=== PATIENT | female | born 1955 | race Caucasian/White ===

== ENCOUNTER 2023-08-26 19:53 | Inpatient (IN) | payer MEDICARE, MEDICAID ==
[~2023-08-26] VITALS: Ht 160 cm; Wt 69.9 kg
[2023-08-26 21:31] LABS: BASOPHILS % (AUTO) 0.2 % (0.0-2.0); EOSINOPHILS % (AUTO) 1.3 % (1.0-6.0); HEMATOCRIT 40.7 % (36-46); HEMOGLOBIN 13.4 g/dL (12.0-16.0); LYMPHOCYTES # (AUTO) 2.5 K/uL (1.0-4.8); LYMPHOCYTES % (AUTO) 31.3 % (22.0-44.0); MEAN CORPUSCULAR HEMOGLOBIN 30.5 pg (26.0-34.0); MEAN CORPUSCULAR VOLUME 93 fL (80-100); MONOCYTES # (AUTO) 0.8 K/uL (0.1-1.0); MONOCYTES % (AUTO) 10.6 % (2.0-9.0); NEUTROPHILS # (AUTO) 4.5 K/uL (1.8-7.7); NEUTROPHILS % (AUTO) 56.6 % (40.0-70.0); PLATELET COUNT (AUTO) 265 K/uL (150-450)
[2023-08-26 21:39] LABS: ANION GAP 11 mmol/L (8-16); CALCIUM, TOTAL 10.3 mg/dL (8.8-10.5); CARBON DIOXIDE 31 mmol/L (22-29); CHLORIDE 102 mmol/L (98-107); CREATININE 1.12 mg/dL (0.60-1.30); GLOMERULAR FILTR. RATE CALC 48 mL/min (>60); GLUCOSE,RANDOM 112 mg/dL (70-110); POTASSIUM 4.2 mmol/L (3.5-5.1); SODIUM SERUM 144 mmol/L (136-145); UREA NITROGEN, BLOOD 25 mg/dL (7-18)
[2023-08-26 21:45] LABS: ALCOHOL, BLOOD (SERUM) < 3 mg/dL (0-10)
[2023-08-26 23:28] LABS: COVID AG,FIA SOURCE NASAL SWAB
[2023-08-26 23:46] LABS: ALCOHOL, URINE DRUG SCREEN NEGATIVE (NEGATIVE); AMPHET/METH SCREEN,URINE NEGATIVE (NEGATIVE); BARBITURATE SCREEN, URINE NEGATIVE (NEGATIVE); BENZODIAZEPINES SCREEN,URINE NEGATIVE (NEGATIVE); CANNABINOID SCREEN,URINE NEGATIVE (NEGATIVE); COCAINE SCREEN,URINE NEGATIVE (NEGATIVE); METHADONE SCREEN, URINE NEGATIVE (NEGATIVE); OPIATE SCREEN,URINE NEGATIVE (NEGATIVE); PHENCYCLIDINE SCREEN,URINE NEGATIVE (NEGATIVE)
[2023-08-26 23:51] LABS: SARS-COV2 (COVID) ANTIGEN,FIA Negative (Negative)
[2023-08-27] MEDS: HALOPERIDOL LACTATE 5 MG/ML VIAL IM ONE (02:03)
[2023-08-27] MEDS: DiphenhydrAMINE HCL 50 MG/ML VIAL IM ONE (02:03)
[2023-08-27] MEDS: LORazepam 2 MG/ML VIAL IM ONE (02:03)
[2023-08-27] MEDS ORDERED: CHOL25TA4 PO (10:01)
[2023-08-27] MEDS ORDERED: MELA5TAB21 PO (10:01)
[2023-08-27] MEDS ORDERED: QUET150T20 PO (10:01)
[2023-08-27] MEDS ORDERED: ATOR40TA71 PO (10:01)
[2023-08-27] MEDS ORDERED: CETI5TAB PO (10:01)
[2023-08-27] MEDS ORDERED: ESCI5SOL2 PO (10:01)
[2023-08-27] MEDS: AmLODIPine BESYLATE 10 MG TABLET PO ONE (10:20)
[2023-08-27] MEDS ORDERED: ESCI-8 PO (13:28)
[2023-08-27] MEDS ORDERED: CETI-450 PO (13:28)
[2023-08-27] MEDS ORDERED: ZOLPIDEM TARTRATE 10 MG TABLET PO PRN (13:30)
[2023-08-27] MEDS ORDERED: HALOPERIDOL 5 MG TABLET PO PRN (13:30)
[2023-08-27 14:49] VITALS: BP 141/61; PULSE 98; RESP 17; TEMP 97.7; O2SAT 98
[2023-08-27] MEDS ORDERED: ALBUTEROL SULFATE HFA 90 MCG/PUFF 8 GM INHALER IH PRN (19:45)
[2023-08-27 20:36] VITALS: BP 160/88; PULSE 93; RESP 16; TEMP 97.7; O2SAT 98
[2023-08-28 08:30] VITALS: RESP 18
[2023-08-28] MEDS: NICOTINE 7 MG/24 HOUR PATCH TD SCH (09:50)
[2023-08-28] MEDS: ESCITALOPRAM OXALATE 10 MG TABLET PO SCH (13:42)
[2023-08-28] MEDS ORDERED: DOCUSATE SODIUM 100 MG CAPSULE PO PRN (14:45)
[2023-08-28] MEDS ORDERED: MAG HYDROX/ALUMINUM HYD/SIMETH ES 30 ML SUSPENSION UDCUP PO PRN (14:45)
[2023-08-28] MEDS ORDERED: LOPERAMIDE HCL 2 MG CAPSULE PO PRN (14:45)
[2023-08-28] MEDS ORDERED: ONDANSETRON HCL 4 MG TABLET PO PRN (14:45)
[2023-08-28] MEDS ORDERED: GuaiFENesin/D-METHORPHAN [SUGAR-FREE] 200-20MG/10 ML SYRUP UDCUP PO PRN (14:45)
[2023-08-28] MEDS ORDERED: IBUPROFEN 400 MG TABLET PO PRN (14:45)
[2023-08-28] MEDS ORDERED: MAGNESIUM HYDROXIDE SUSPENSION 30 ML UDCUP PO PRN (14:45)
[2023-08-28] MEDS ORDERED: MELATONIN 5 MG TABLET PO PRN (15:00)
[2023-08-28 17:08] VITALS: RESP 18; O2SAT 96
[2023-08-28] MEDS: ACETAMINOPHEN 325 MG TABLET PO PRN (17:08)
[2023-08-28 18:08] VITALS: RESP 17
[2023-08-28] MEDS: PNEUMOCOCCAL VACCINE POLYVALENT 0.5 ML SYRINGE [PPSV23] IM. ONE (19:25)
[2023-08-28] MEDS: ATORVASTATIN CALCIUM 40 MG TABLET PO SCH (20:35)
[2023-08-28] MEDS: QUEtiapine FUMARATE 300 MG TABLET PO SCH (20:35)
[2023-08-28 22:09] VITALS: BP 149/76; PULSE 97; RESP 18; TEMP 97.9; O2SAT 96
[2023-08-29] MEDS: CETIRIZINE HCL 10 MG TABLET PO SCH (08:34)
[2023-08-29] MEDS: CHOLECALCIFEROL (VIT D3) 1,000 UNITS [25 MCG] TABLET PO SCH (08:34)
[2023-08-29 08:38] VITALS: BP 111/66; PULSE 100; RESP 18; TEMP 97.5; O2SAT 95
[2023-08-29 09:15] LABS: HEMOGLOBIN A1C 5.9 % (3.8-5.6)
[2023-08-29 09:30] LABS: THYROID STIMULATING HORMONE 4.1 uIU/mL (0.36-3.74)
[2023-08-29 09:47] LABS: CHOL/HDL RATIO 3.9 (3.9-5.7)
[2023-08-29 20:12] VITALS: BP 157/75; PULSE 82; RESP 18; TEMP 98.1; O2SAT 100
[2023-08-30 08:15] VITALS: BP 111/60; PULSE 100; RESP 16; TEMP 97.4; O2SAT 97
[2023-08-30 09:10] VITALS: BP 111/60; PULSE 103; RESP 18; TEMP 97.4; O2SAT 97
[2023-08-30 20:16] VITALS: BP 123/87; PULSE 98; RESP 18; TEMP 97.5; O2SAT 99
[2023-08-31 08:58] VITALS: BP 142/76; PULSE 84; RESP 18; TEMP 97.4; O2SAT 96
[2023-08-31] MEDS: NICOTINE 14 MG/24 HOUR PATCH TD PRN (10:00)
[2023-08-31 15:50] VITALS: BP_SYST 150; BP_SYST 170; BP_DIAS 100; PULSE 90; RESP 18; TEMP 97.7; O2SAT 97
[2023-08-31] MEDS: LORazepam 2 MG TABLET PO PRN (16:10)
[2023-08-31 17:33] VITALS: BP 177/90; PULSE 95
[2023-08-31] MEDS: CloNIDine HCL 0.1 MG TABLET PO PRN (17:53)
[2023-08-31 20:08] VITALS: BP 137/67; PULSE 72; RESP 18; TEMP 97.5; O2SAT 96
[2023-09-01 09:28] LABS: APPEARANCE,URINE CLEAR (CLEAR); BILIRUBIN,URINE NEGATIVE (NEGATIVE); COLOR,URINE COLORLESS (YELLOW); GLUCOSE, URINE (UA) NEGATIVE (NEGATIVE); KETONES,URINE NEGATIVE (NEGATIVE); LEUKOCYTE ESTERASE ,URINE NEGATIVE (NEGATIVE); NITRATE,URINE NEGATIVE (NEGATIVE); OCCULT BLOOD,URINE NEGATIVE (NEGATIVE); PROTEIN,URINE NEGATIVE (NEGATIVE); SPECIFIC GRAVITIY, URINE 1.007 (1.003-1.030); UROBILINOGEN,URINE <=1.0 mg/dL (<=1.0)
[2023-09-01 09:35] LABS: ALCOHOL, URINE DRUG SCREEN NEGATIVE (NEGATIVE); AMPHET/METH SCREEN,URINE NEGATIVE (NEGATIVE); BARBITURATE SCREEN, URINE NEGATIVE (NEGATIVE); BENZODIAZEPINES SCREEN,URINE NEGATIVE (NEGATIVE); CANNABINOID SCREEN,URINE NEGATIVE (NEGATIVE); COCAINE SCREEN,URINE NEGATIVE (NEGATIVE); METHADONE SCREEN, URINE NEGATIVE (NEGATIVE); OPIATE SCREEN,URINE NEGATIVE (NEGATIVE); PHENCYCLIDINE SCREEN,URINE NEGATIVE (NEGATIVE)
[2023-09-01 09:47] VITALS: BP_SYST 111; BP_SYST 137; BP_DIAS 67; BP_DIAS 69; PULSE 72; RESP 18; TEMP 97.5; O2SAT 96
[2023-09-02 08:16] VITALS: BP 122/64; PULSE 70; RESP 18; TEMP 97.4; O2SAT 98
[2023-09-02] MEDS: TUBERCULIN, PURIFIED PROTEIN DERIVATIVE 5 TU/0.1 ML SYRINGE ID ONE (16:17)
[2023-09-02 21:09] VITALS: BP 118/69; PULSE 85; RESP 16; TEMP 97.6; O2SAT 99
[2023-09-03 08:24] VITALS: BP 109/58; PULSE 66; RESP 19; TEMP 98; O2SAT 100
[2023-09-03 20:53] VITALS: BP 159/79; PULSE 75; RESP 16; TEMP 98; O2SAT 99
[2023-09-04 09:39] VITALS: BP 140/97; PULSE 98; RESP 18; TEMP 97.7; O2SAT 98
[2023-09-04 20:00] VITALS: BP 140/97; PULSE 98; RESP 18; TEMP 97.7; O2SAT 98
[2023-09-05 08:54] VITALS: BP 150/80; PULSE 79; RESP 18; TEMP 97.3; O2SAT 96
[2023-09-05 20:11] VITALS: BP 178/83; PULSE 76; RESP 16; TEMP 97.9; O2SAT 99
[2023-09-06 08:11] VITALS: BP 109/70; PULSE 105; RESP 17; TEMP 97.6; O2SAT 97
[2023-09-06 16:35] VITALS: BP 198/83; PULSE 92; RESP 18
[2023-09-06 17:22] VITALS: BP 154/77; PULSE 97; RESP 18
[2023-09-06 20:20] VITALS: BP 132/72; PULSE 84; RESP 16; TEMP 98.2; O2SAT 96
[2023-09-07 08:21] VITALS: BP 106/62; PULSE 73; RESP 18; TEMP 98; O2SAT 100
[2023-09-07 20:05] VITALS: BP 115/70; PULSE 80; RESP 17; TEMP 97.8; O2SAT 98
[2023-09-08 15:06] VITALS: BP 119/81; PULSE 91; RESP 16; TEMP 97.8; O2SAT 97
[2023-09-08 20:38] VITALS: BP 152/77; PULSE 85; RESP 18; TEMP 98.4; O2SAT 96
[2023-09-09 08:32] VITALS: BP 138/98; PULSE 71; RESP 17; TEMP 97.1; O2SAT 97
[2023-09-09 22:00] VITALS: BP_DIAS 87; PULSE 87; RESP 20; TEMP 97.6; O2SAT 87
[2023-09-10 10:44] VITALS: BP 149/88; PULSE 106; RESP 17; TEMP 97.3; O2SAT 98
[2023-09-11 08:54] VITALS: BP 119/68; PULSE 83; RESP 18; TEMP 96.9; O2SAT 95
[2023-09-11 20:00] VITALS: BP 140/66; PULSE 96; RESP 17; TEMP 97.4; O2SAT 98
[2023-09-12 08:55] VITALS: BP 127/78; PULSE 86; RESP 16; TEMP 98.3; O2SAT 98
[2023-09-12 20:45] VITALS: PULSE 76; RESP 18; TEMP 97.9; O2SAT 98
[2023-09-12] MEDS: ALBUTEROL SULFATE HFA 90 MCG/PUFF 8 GM INHALER IH PRN (23:19)
[2023-09-13 08:54] VITALS: BP 107/59; PULSE 90; RESP 18; TEMP 97.9; O2SAT 97
[2023-09-14 08:44] VITALS: BP 117/62; PULSE 74; RESP 17; TEMP 97.3; O2SAT 97
[2023-09-14 20:44] VITALS: BP 120/70; PULSE 70; RESP 17; TEMP 96.6; O2SAT 97
[2023-09-15 08:33] VITALS: BP 131/79; PULSE 98; RESP 18; TEMP 97.8; O2SAT 98
[2023-09-15 16:52] VITALS: BP 199/74; PULSE 74
[2023-09-15 17:43] VITALS: BP 168/66
[2023-09-15 21:08] VITALS: BP 148/68; PULSE 84; RESP 18; TEMP 97.9
[2023-09-16 12:19] VITALS: BP 118/61; PULSE 80; RESP 18; TEMP 97.1; O2SAT 96
[2023-09-16 20:27] VITALS: BP 144/57; PULSE 99; RESP 17; TEMP 98.6; O2SAT 99
[2023-09-17 08:30] VITALS: BP 123/60; PULSE 93; RESP 16; TEMP 97.3; O2SAT 97
[2023-09-17 20:38] VITALS: BP 131/60; PULSE 89; RESP 16; TEMP 98.5; O2SAT 97
[2023-09-18] MEDS: LEVOTHYROXINE SODIUM 50 MCG TABLET PO SCH (06:39)
[2023-09-18 08:20] VITALS: BP 122/54; PULSE 86; RESP 16; TEMP 98.3; O2SAT 95
[2023-09-18] MEDS: PETROLATUM,WHITE 28 GM JELLY TP PRN (15:20)
[2023-09-18 20:35] VITALS: BP 150/76; PULSE 81; RESP 16; TEMP 97.7; O2SAT 97
[2023-09-19 09:42] VITALS: BP 103/48; PULSE 74; RESP 16; TEMP 96.2; O2SAT 97
[2023-09-19 20:25] VITALS: BP 141/90; PULSE 102; RESP 18; TEMP 97.3; O2SAT 97
[2023-09-20 08:09] VITALS: BP 127/60; PULSE 75; RESP 17; TEMP 98.4; O2SAT 98
[2023-09-20 20:15] VITALS: BP 148/67; PULSE 78; RESP 18; TEMP 97.8; O2SAT 96
[2023-09-21 08:31] VITALS: BP 159/75; PULSE 81; RESP 17; TEMP 97.1; O2SAT 96
[2023-09-21 20:24] VITALS: PULSE 81; RESP 18; TEMP 98.1; O2SAT 98
[2023-09-22 10:09] VITALS: BP 114/57; PULSE 106; RESP 16; TEMP 97.6; O2SAT 96
[2023-09-22 16:50] VITALS: BP 216/94; PULSE 89; RESP 18
[2023-09-22 17:30] VITALS: BP 170/90; RESP 18
[2023-09-22 17:56] VITALS: BP 128/54; PULSE 78; RESP 18
[2023-09-22 22:20] VITALS: BP 121/58; PULSE 68; RESP 18; TEMP 97.8
[2023-09-23 06:31] LABS: GLUCOMETER DEV NAME(LOC) BV2X.3; GLUCOSE,POINT OF CARE 154 MG/DL (70-110)
[2023-09-23 08:11] VITALS: BP 107/51; PULSE 67; RESP 18; TEMP 98.1; O2SAT 98
[2023-09-23 09:50] VITALS: BP 106/62
[2023-09-23 16:30] VITALS: BP 194/82; PULSE 73; RESP 18; O2SAT 97
[2023-09-23 17:00] VITALS: BP 185/75; PULSE 78; RESP 18
[2023-09-23 18:56] VITALS: BP 150/62; PULSE 81; RESP 18
[2023-09-23 20:20] VITALS: BP 137/59; PULSE 69; RESP 18; TEMP 97.8; O2SAT 96
[2023-09-24 08:11] VITALS: BP 112/69; PULSE 95; RESP 16; TEMP 97; O2SAT 99
[2023-09-24 20:27] VITALS: BP 167/54; PULSE 71; RESP 16; TEMP 97.5; O2SAT 98
[2023-09-25 08:22] VITALS: BP 106/60; PULSE 71; RESP 18; TEMP 96.4; O2SAT 97
[2023-09-25 20:44] VITALS: BP 160/82; PULSE 78; RESP 18; TEMP 98.9; O2SAT 96
[2023-09-26 08:08] VITALS: BP 137/65; PULSE 81; RESP 18; TEMP 91.2; O2SAT 99
[2023-09-26 21:04] VITALS: BP 148/81; PULSE 89; RESP 18; TEMP 97; O2SAT 98
[2023-09-27 07:58] LABS: BASOPHILS % (AUTO) 0.5 % (0.0-2.0); EOSINOPHILS % (AUTO) 2.3 % (1.0-6.0); HEMATOCRIT 39.9 % (36-46); LYMPHOCYTES # (AUTO) 1.9 K/uL (1.0-4.8); LYMPHOCYTES % (AUTO) 35.8 % (22.0-44.0); MEAN CORPUSCULAR HEMOGLOBIN 30.3 pg (26.0-34.0); MEAN CORPUSCULAR HGB CONC 32.6 G/dL (31.0-37.0); MEAN CORPUSCULAR VOLUME 93 fL (80-100); MONOCYTES # (AUTO) 0.5 K/uL (0.1-1.0); MONOCYTES % (AUTO) 9.4 % (2.0-9.0); NEUTROPHILS # (AUTO) 2.7 K/uL (1.8-7.7); PLATELET COUNT (AUTO) 213 K/uL (150-450); RED BLOOD CELL COUNT(AUTO) 4.29 MIL/uL (4.00-5.20); RED CELL DISTRIBUTION WIDTH 13.8 % (11.5-14.5); WHITE BLOOD COUNT (AUTO) 5.3 K/uL (4.5-11.0)
[2023-09-27 08:09] LABS: CALCIUM, TOTAL 9.3 mg/dL (8.8-10.5); CREATININE 1.1 mg/dL (0.60-1.30); POTASSIUM 4.1 mmol/L (3.5-5.1)
[2023-09-27 08:38] VITALS: BP 115/63; PULSE 97; RESP 18; TEMP 98.1; O2SAT 97
[2023-09-27 20:06] VITALS: BP 151/67; PULSE 82; RESP 16; TEMP 97.9; O2SAT 98
[2023-09-28 08:32] VITALS: BP 123/68; PULSE 73; RESP 17; TEMP 98.2; O2SAT 96
[2023-09-28 19:39] VITALS: BP 197/87; PULSE 80; RESP 18
[2023-09-28] MEDS: AmLODIPine BESYLATE 10 MG TABLET PO SCH (20:59)
[2023-09-28 21:35] VITALS: BP 137/55; PULSE 76; RESP 18; O2SAT 97
[2023-09-28] MEDS: HydrALAZINE HCL 25 MG TABLET PO SCH (21:45)
[2023-09-29 08:16] VITALS: BP 119/69; PULSE 100; RESP 19; TEMP 97.4; O2SAT 99
[2023-09-29 12:46] LABS: GLUCOMETER DEV NAME(LOC) POC.BV; POC SARS-COV2 AG, FIA NEGATIVE (NEGATIVE)
[2023-09-29] MEDS ORDERED: LEVO50 PO (13:08)
[2023-09-29] MEDS ORDERED: AMLO-258 PO (13:09)
[2023-09-29] MEDS ORDERED: HYDR25TA84 PO (13:09)
[2023-09-29] MEDS ORDERED: QUET300T2 PO (13:10)
[2023-09-29 16:20] VITALS: BP 170/90; RESP 18
[2023-09-29 16:54] VITALS: BP 160/86; RESP 18
== END 2023-09-29 16:50 | DRG 885 ==
LOC: EMS 19:53 → B2S 08-27 13:45 → B2X 08-28 20:29 → B2S 09-07 11:37 → B2X 09-15 13:22
PROVIDERS: ADMIT Psychiatry & Neurology Child & Adolescent Psychiatry; ATTEND Psychiatry & Neurology Child & Adolescent Psychiatry
PROC: GZHZZZZ Group Psychotherapy (ICD-10-PCS; principal; 2023-08-28)
PROC: GZ51ZZZ Individual Psychotherapy, Behavioral (ICD-10-PCS; 2023-08-28)
DX: F25.1 Schizoaffective disorder, depressive type (principal); J44.9 Chronic obstructive pulmonary disease, unspecified; E55.9 Vitamin D deficiency, unspecified; J30.9 Allergic rhinitis, unspecified; F41.9 Anxiety disorder, unspecified; Z20.822 Contact with and (suspected) exposure to COVID-19; G47.00 Insomnia, unspecified; E78.5 Hyperlipidemia, unspecified; E03.9 Hypothyroidism, unspecified; Z79.899 Other long term (current) drug therapy; Z91.148 Patient's other noncompliance with medication regimen for other reason
CPT/HCPCS: 80048; 80061; 80307; 81003; 82962; 83036; 84439; 84443; 85025; 87081; 87481; 90732; 99285; G0480; J1200; J1630; J2060; J3535